=== PATIENT | female | born 1990 | race Caucasian/White ===

== ENCOUNTER → 2018-06-28 16:10 | Outpatient (CLI) | payer BC, SELFPAY ==
--- NOTE | 2018-06-28 16:14 | DI.US.S_ITS ---
PROCEDURE: US OB <= 14 WEEKS FETUS INDICATIONS: Dating US OUTSIDE/PRIOR DATING DATA: Last menstrual period (LMP): Not available. LMP-based estimated date of delivery (CHRISTIANA): Not available. First dating scan (date and location): 06/28/18. Estimated date of delivery (CHRISTIANA) from first dating scan: 01/26/19 os or -5 days. TECHNIQUE: Real-time scanning was performed of the fetus and maternal pelvic organs, with image documentation. Endovaginal scanning was also performed to better visualize the fetus and maternal ovaries. COMPARISON: None. FINDINGS: Embryo: [place]-rump length of 2.9 cm correlates with a gestational age estimate of 9 weeks 5 days, plus or -5 days. Heart rate is 180 beats per minute. Measurement variability in dating: +/- 4 weeks by LMP, +/- 7 days by mean sac diameter (use before 6 weeks gestation if crown-rump length not able to be measured), +/- 5 days by crown-rump length (up to 8 weeks 6 days gestation), +/- 7 days by crown-rump length (up to 13 weeks 6 days gestation). Maternal organs: Ovaries normal considering gestational status. Limited images through the kidneys demonstrate no hydronephrosis. IMPRESSION: Single living intrauterine gestation, delivery date projected to be centered on 01/26/19, plus or -5 days. Followup anatomic survey at 22 weeks gestation is recommended. Dictated by: Dilshad Eddy M.D. on 06/28/2018 at 17:19 Approved by: Dilshad Eddy M.D. on 06/28/2018 at 17:20
== END ==
PROVIDERS: Visit Provider Family Medicine
DX: Z34.91 Encounter for supervision of normal pregnancy, unspecified, first trimester (principal); Z3A.09 9 weeks gestation of pregnancy
CPT/HCPCS: 76801

== ENCOUNTER → 2018-07-11 15:50 | Outpatient (CLI) | payer BC, SELFPAY ==
[2018-07-11 16:20] LABS: Add Manual Diff / Slide Review NO; Basophils Percent Auto 0.6 % (0-2); Hematocrit 37.3 % (36-46); Hemoglobin 12.8 g/dL (12.0-16.0); Lymphocytes Percent Auto 31.5 % (25-40); Mean Corpuscular HGB Conc 34.2 % (30-36); Mean Corpuscular Hemoglobin 29.3 PG (26-34); Mean Corpuscular Volume 85.5 fL (80-100); Monocytes Percent Auto 6.2 % (3-14); Neutrophils Absolute Auto 4600 /uL (3000-5900); Neutrophils Percent Auto 60.7 % (50-75); Platelet Count 277 X10^3/uL (150-400); Red Blood Cell Count 4.36 X10^6/uL (4.0-5.2); Red Cell Distribution Width 12.8 % (11.6-14.8); White Blood Cell Count 7.6 X10^3/uL (4.5-11.0)
[2018-07-11 17:56] LABS: Rubella Antibody IgG > 350.0 IU/mL (>15)
[2018-07-11 18:00] LABS: Hepatitis B Surface Antigen NEGATIVE s/c (NEGATIVE)
[2018-07-11 18:15] LABS: HIV 1 and 2 Antibody NEGATIVE (NEGATIVE); Hep C Virus Ab w/Reflex Quant NEGATIVE s/c (NEGATIVE)
[2018-07-13 14:31] LABS: HSV 2 IGG AB < 0.90 index (< 0.90); HSV1IGG < 0.90 index (< 0.90)
[2018-07-20 12:48] LABS: Rapid Plasma Reagin NON-REACTIVE
== END ==
PROVIDERS: Visit Provider Family Medicine
DX: Z34.91 Encounter for supervision of normal pregnancy, unspecified, first trimester (principal)
CPT/HCPCS: 36415; 80055; 86695; 86696; 86703; 86787; 86803; 86850; 86900; 86901; 87086

== ENCOUNTER → 2018-08-16 12:32 | Outpatient (CLI) | payer BC, SELFPAY ==
[2018-08-23 13:31] LABS: AFP, Serum 30.2 ng/mL; Calc Gestational Age 17.3; Cigarette Smoker N; Donated Egg NOT GIVEN; Donor Egg Age NOT GIVEN; Estriol, Free 1.18 ng/mL; Inhibin A, Dimeric 130 pg/mL; Maternal Weight 163 lbs; Number of Fetuses 1; Previous Pregnancy Down Syndro NOT GIVEN; hCG, Serum 22.9 IU/mL
== END ==
PROVIDERS: Visit Provider Family Medicine
DX: Z34.82 Encounter for supervision of other normal pregnancy, second trimester (principal); Z3A.17 17 weeks gestation of pregnancy
CPT/HCPCS: 36415; 82105; 82677; 84702; 86336

== ENCOUNTER → 2018-09-11 07:33 | Outpatient (CLI) | payer BC, SELFPAY ==
--- NOTE | 2018-09-11 07:35 | DI.US.S_ITS ---
PROCEDURE: US OB >= 14 WEEKS FETUS INDICATIONS: ANATOMIC SURVEY OUTSIDE/PRIOR DATING DATA: Last menstrual period (LMP): Unknown. LMP-based estimated date of delivery (CHRISTIANA): N./A.. First dating scan (date and location): 06/28/19. Estimated date of delivery (CHRISTIANA) from first dating scan: 01/26/19. TECHNIQUE: Real-time scanning was performed of the fetus, with image documentation and biometric measurements. Endovaginal scanning: No COMPARISON: [facility], , OB >= 14 WEEKS FETUS, 07/11/2018, 16:50. FINDINGS: General: A single living intrauterine gestation is present. Presentation: Breech. Placenta: Placental position is posterior, without previa. Amniotic fluid index: 14.5 cm, normal range is 5-24 cm. heart rate: 152 beats per minute. Maternal cervical canal: 3.4 cm long. Normal lower limit is 2.5 cm. biometrics: Biparietal diameter: 21 weeks 5 days Head circumference: 21 weeks 3 days Abdominal circumference: 21 weeks 5 days Femur length: 19 weeks 5 days Estimated gestational age from initial scan: 20 weeks 3 days Composite gestational age from present scan: 21 weeks 1 day Estimated weight and percentile: 387 g; 73rd percentile Measurement variability for biometric dating: +/- 7 days from 14 weeks to 15 weeks 6 days gestation, +/- 10 days from 16 weeks to 21 weeks 6 days gestation, +/- 2 weeks from 22 weeks to 27 weeks 6 days gestation, +/- 3 weeks for 28 weeks gestation or later. weight reference: 4500 g or EFW >90/95% is considered macrosomia or large for gestational age. EFW <10% is small for gestational age. EFW 5% or less is considered intra-uterine growth restriction. Anatomic survey: Neuro: Ventricles are non-dilated at less than 10 mm. Cisterna magna is normal at 3-11 mm. Cerebellum is normal in size and morphology. Nuchal skin fold: Normal at less than 6 mm between 14-21 weeks gestational age. Face: Suboptimally visualized. Spine: No evidence for spina bifida. Heart: Suboptimally visualized. Diaphragm: Diaphragm is intact. Stomach: Left-sided stomach is present. Kidneys: No hydronephrosis. Normal is less than 5 mm in 2nd trimester, less than 7 mm in 3rd trimester. Cord: 3-vessel cord has orthotopic insertion. Bladder: Normal in size. Extremities: All 4 extremities identified. IMPRESSION: 1. Single living IUP redemonstrated and interval growth is normal. 2. face and heart not well seen; otherwise normal anatomic survey. Followup recommended. Dictated by: Ant Linn [facility] Interpreted: Gabe Palmer MD on 09/11/2018 at 8:47 Approved by: Gabe Palmer M.D. on 09/11/2018 at 9:30
== END ==
PROVIDERS: Visit Provider Family Medicine
DX: Z36.89 Encounter for other specified antenatal screening (principal); Z34.82 Encounter for supervision of other normal pregnancy, second trimester; Z3A.21 21 weeks gestation of pregnancy
CPT/HCPCS: 76811

== ENCOUNTER → 2018-10-27 10:29 | Outpatient (CLI) | payer BC, SELFPAY ==
[2018-10-27 12:06] LABS: Hematocrit 29.2 % (36-46); Hemoglobin 9.8 g/dL (12.0-16.0)
[2018-10-27 12:33] LABS: GTT (PREG) 1 Hour PP 50gm Dose 88 mg/dL (76-139)
== END ==
PROVIDERS: Visit Provider Family Medicine
DX: Z34.82 Encounter for supervision of other normal pregnancy, second trimester (principal); Z3A.25 25 weeks gestation of pregnancy
CPT/HCPCS: 36415; 82950; 85014; 85018; 86850

== ENCOUNTER → 2018-12-20 08:24 | Outpatient (CLI) | payer BC, SELFPAY ==
[2018-12-21 08:27] LABS: Strep Grp B PCR NEG for Grp B Strep
== END ==
PROVIDERS: Visit Provider Family Medicine
DX: Z34.83 Encounter for supervision of other normal pregnancy, third trimester (principal); Z3A.35 35 weeks gestation of pregnancy
CPT/HCPCS: 87653

== ENCOUNTER 2019-01-22 05:45 | Inpatient (IN) | payer BC, SELFPAY ==
[2019-01-22] VITALS (9 sets, daily range): BP systolic 97–120; BP diastolic 56–69; PULSE 80–86; RESP 15–21; TEMP 36–36.4; O2SAT 96–100
--- NOTE | 2019-01-22 | PATH_ITS ---
[facility] Accession Number: [id number] . 01 Material submitted: . SEGMENT BILATERAL FALLOPIAN TUBES . 02 Diagnosis: Segments of Bilateral Fallopian Tube, Bilateral Tubal Ligation: Two complete cross-sections of fallopian tube. Simple benign paratubal cysts. Negative for neoplasm. MRV/01/23/2019 . 02 Electronically signed: . Jean Lang MD, PhD, Pathologist NPI- [id number] . 01 Gross description: . Received one formalin-filled container labeled with the patient's name and labeled segment bilateral fallopian tubes. The specimen consists of two jason-recinos non-fimbriated cylindrical shaped portions of tissue. The first measures 0.8 x 0.6 x 0.5 cm. Inked blue, trisected and entirely submitted in cassette A1. The second piece measures 0.8 x 0.5 x 0.5 cm. Inked blue, trisected and entirely submitted in cassette A2. ([facility] [place]:[id number]) /[facility] . 02 Pathologist provided ICD-10: Z30.2 . 02 CPT . 834754 Performed at: 01 [facility] [address] [place] [address], [place], [place] [id number] MD Ish Blackwell MD Phone: [phone] Performed at: 02 [facility] [address] [place], [place] [id number] MD Carley King MD Phone: [phone]
[2019-01-22] MEDS: LACTATED RINGERS 1,000 ML 100 ML IV ×3 (06:40→08:38)
--- NOTE | 2019-01-22 07:20 | SUR.OPER ---
Supine on Padded OR bed, head on pillow, safety belt at thigh, arms secured on padded arm boards at <90 degrees abduction. Bump under right buttock. Legs uncrossed with pillow under knees, gel pad to heels, tape over blanket to lower legs.
--- NOTE | 2019-01-22 07:21 | P.HP_ITS ---
History of Present Illness Date Patient Seen: 01/22/19 Time Patient Seen: 07:15 Chief complaint: [id number] REPEAT W/TUBAL LIGATION Narrative: 29-year-old female G2 para 1 with an estimated due date of 01/22/2019 who is here for repeat section. She is 40 weeks gestational age consistent with LMP and early ultrasound. Patient had routine care starting at 12 weeks and good follow-up. care risk factors include history of severe anemia and previous . She had a fairly uneventful . She gained approximately 40 lb during her process. She received the Tdap and RhoGAM during her as well as a flu vaccine. Her GBS status is negative as well. She presents to the labor and delivery floor for repeat section. Patient family at bedside. Reviewed procedure and descriptive detail with patient including risks benefits and common complications of the procedure such as bleeding infection poor wound healing or injury to bladder or bowel. Patient is requesting tubal ligation as well and consent was obtained for this. Patient states she has a little bit of cough this morning. No headache no fever chills no dizziness no lightheadedness she is excited. No vaginal bleeding or if fluid or discharge from the vagina. Past medical history of asthma and bronchitis. History of previous iron infusions constipation urinary tract infection eczema. Past surgical had a surgical history deviated septum and previous Past Gynecological history no history of HIV GC chlamydia other gynecological infections. lab work blood type a negative antibody screen negative hematocrit 37.3 platelet count 277 VDRL L nonreactive hepatitis-B surface antigen negative rubella immune hep C negative varicella immune 2nd trimester integrated screen negative diabetes screen 88 antibody screen negative group B strep negative Patient History Surgical History Status post delivery (Resolved 02/09/16) Social History marital status: Smoking Status: Never smoker alcohol intake: never substance use type: does not use Family & Social History Tobacco & Substance use: Smoking Status Never smoker alcohol intake never Meds Home Medications Medication Instructions Recorded Confirmed Type 1 tab PO DAILY 07/11/18 01/22/19 History vitamin,calcium,[id number] acid tablet albuterol sulfate HFA 90 2 puff INHALATION Q6H PRN #8 gram 09/20/18 01/22/19 Rx mcg/actuation aerosol inhaler ondansetron 4 mg disintegrating 4 mg PO Q6-8H PRN #30 tab 12/05/18 01/22/19 Rx tablet Allergies Allergy/AdvReac Type Severity Reaction Status Date / Time amoxicillin [AMOXICILLIN] Allergy Mild Diarrhea Verified 01/22/19 06:53 Exam Vital Signs (past 8 hours): - 01/22/19 06:41 Blood Pressure 120/69 Narrative Exam Narrative: . General: Alert no apparent distress. Affect is appropriate. Dustin it is uncomfortable. HEENT: Neck is supple without lymphadenopathy pupils equal round and reactive. Cardio: S1-S2 regular rate and rhythm. Respiratory: Lungs clear to auscultation. Abdomen: Gravid. Extremities: Normal deep tendon reflexes trace edema. [place]: No contractions heart tones: heart tones present Assessment & Plan Assessment & Plan narrative: 28-year-old female G2 para 1 at 40 weeks gestational age for repeat section and bilateral tubal ligation. Patient will have informed consent signed patient will have an IV started CBC type and screen will be drawn. Patient will receive cefotetan 2 g on-call for operating room.. Patient will have epidural anesthesia. Risks benefits and common complications of were reviewed with the patient. All questions were answered by patient and patient's partner. Aftercare instructions were also reviewed as well as recovery. Patient will be taken to the OR for operation.
[2019-01-22 07:33] LABS: Add Manual Diff / Slide Review NO; Basophils Absolute Auto 200 /uL (0-100); Basophils Percent Auto 1.1 % (0-2); Eosinophils Absolute Auto 200 /uL (0-450); Eosinophils Percent Auto 1.2 % (2-4); Hematocrit 28.7 % (36-46); Hemoglobin 9.1 g/dL (12.0-16.0); Lymphocytes Absolute Auto 3100 /uL (1100-4500); Lymphocytes Percent Auto 20.2 % (25-40); Mean Corpuscular HGB Conc 31.7 % (30-36); Mean Corpuscular Hemoglobin 23.5 PG (26-34); Mean Corpuscular Volume 74.1 fL (80-100); Monocytes Absolute Auto 1100 /uL (0-900); Monocytes Percent Auto 7.1 % (3-14); Neutrophils Absolute Auto 10700 /uL (1500-7000); Neutrophils Percent Auto 70.4 % (50-75); Platelet Count 287 X10^3/uL (150-400); Red Blood Cell Count 3.87 X10^6/uL (4.0-5.2); Red Cell Distribution Width 15.9 % (11.6-14.8); White Blood Cell Count 15.1 X10^3/uL (4.5-11.0)
[2019-01-22] MEDS: CEFOTETAN 2 GM/50 ML PIGGYBACK IV (07:58)
--- NOTE | 2019-01-22 08:19 | SUR.OPER ---
VIABLE MALE INFANT DELIVERED AT 0818. CORD BLOOD AND PLACENTA TO OB WITH RN.
--- NOTE | 2019-01-22 09:07 | P.OP_ITS ---
Procedure & Clinicians Procedure: Repeat section with tubal ligation Same procedure as scheduled: Yes Indications: 29-year-old female G2 para 240 weeks gestational age with history of previous section requesting tubal ligation and repeat tiffany call. Financial Reporting Manager: Kanika Fair Click Yes if Unassisted: No Anesthesia Type: Spinal Operative Notes Findings: Procedure: Lower segment transverse section Consent: Verbal and written informed consent were obtained from the patient placed on the chart. Findings: Normal uterus normal ovaries male infant Anesthesia: Spinal Estimated blood loss: 500 mL Drains: Izaguirre to gravity. Description of procedure: The patient was brought to the operating room after her spinal epidural, preparation, and Izaguirre had been performed. The abdomen was prepped and draped in tested for for analgesia. When it was found to be adequate, a lower abdom inal Pfannenstiel incision was made with first with a knife and cared down to the fascia with a second knife. The fascia was incised in the midline and extended laterally with a knife. Bleeding points were clamped with hemostats and Bovie coagulated. The rectus muscles were by blunt dissection. The rectus muscles were divided in the midline and the peritoneum was grasped with hemostats and carefully entered with Gonzales scissors. The incision was extended bilaterally. The bladder blade was then placed. The vesicoperitoneum was grasped with smooth pickups, entered with Metzenbaum scissors, and extended laterally. The bladder flap was created by gently blunt dissection and placed behind the bladder blade. The lower uterine segment was carefully incised with the scalpel and extended laterally with the fingers. A live was found to be in the vertex position. The head was then easily elevated with the hand. The baby was then suctioned and cried immediately, and was handed to the waiting attendant. The placenta was delivered manually. The uterus was explored with a wet lap sponge and found to be clear membranes. The first layer of the uterine closure was with running locking #1 chromic catgut suture. The second layer with an imbricating #1 chromic catgut suture. Hemostasis was carefully checked and found to be satisfactory. The left tube was identified with a Reklaw and fimbriated an. Left tube was closed in a modified Argyle procedure this procedure was then repeated on the right side tubes were sent for pathology. Afterwards the tubes were inspected and cauterized the bleeding was satisfactory. The bladder flap was closed with a running 2-0 chromic catgut suture. . After sponge and needle counts were found to be correct the peritoneum was closed with 2-0 chromic catgut suture. Rectus muscles were approximated in the lower midline. The fascia was closed with a 2 running 0 Vicryl from lateral to midline. The subcutaneous tissue was approximated with interrupted 2.0 plain gut. Bleeding points were Bovie and coagulated. The subcutaneous tissue was approximated with 2.0 plain gut suture. The skin was closed with 1-0 running subcuticular stitch. Urinary output was adequate and normal patient left to the recovery room in good condition. Closure Type: primary Specimen(s): other Applied: catheter Estimated Blood Loss (mL): 500 Complications: none Condition: stable Disposition: other
[2019-01-22] MEDS: HYDROMORPHONE 2 MG INJ 0.5 MG IV ×2 (09:14→09:24)
--- NOTE | 2019-01-22 09:28 | SUR.PHASEI ---
Report called to Brunilda
--- NOTE | 2019-01-22 09:42 | SUR.PHASEI ---
Pt transferred to the center. VS, fundus and dressing checked with RN. Small areas of shadow drainage to abd drsg x3. Fundus at U per RN. IV tubing changed. Spinal level at L1.
[2019-01-22] MEDS: HYDROCODONE/ACET 5/325 TABLET 2 TAB PO (10:08)
[2019-01-22] MEDS: MORPHINE PCA 30 MG/30 ML PCA.VIAL IV (10:30)
[2019-01-22] MEDS: MORPHINE 10 MG/ML INJ 2 MG IV ×3 (10:35→12:01)
[2019-01-22 12:34] LABS: Hematocrit 27.8 % (36-46); Hemoglobin 8.9 g/dL (12.0-16.0)
[2019-01-22] MEDS: HYDROMORPHONE PCA (6MG/30ML) 6 MG/30 ML PCA.VIAL 1 MG IV (12:45)
[2019-01-22] MEDS: LORazepam 2 MG/ML SYRINGE 0.5 MG IV (12:51)
[2019-01-22] MEDS: HYDROMORPHONE 1 MG INJ IV (12:53)
[2019-01-22] MEDS: KETOROLAC 30 MG/ML VIAL IV ×2 (14:21→23:17)
[2019-01-22 14:23] LABS: Hematocrit 27.4 % (36-46); Hemoglobin 8.7 g/dL (12.0-16.0)
[2019-01-22] MEDS: LACTATED RINGERS 1,000 ML 125 ML IV ×2 (14:45→23:53)
--- NOTE | 2019-01-22 15:43 | PM.PN.1 ---
Subjective Date Patient Seen: 01/22/19 Time Patient Seen: 11:44 Interval history: Patient seen and evaluated 10 13 got called by the nurse a.m. the patient was in more pain. The patient did not have Duramorph in her spinal which she had last time. Started a morphine WELDER TECH and this was given. But despite this she did not have pad adequate pain relief. Gave her a bolus of IV morphine. And some Vistaril. Despite this over the next half an hour patient was still in considerable amount of pain. During this time patient's vital signs were stable. She was not tachycardic. Elected to do a hemoglobin hematocrit to make sure there was internal bleeding. Her incision was cleaned and checked which looked normal. She had no significant drainage from her vagina and anticipated vaginal bleeding after . Her Izaguirre was draining well to gravity. Due to despite inadequate pain control we then stopped her morphine WELDER TECH and placed her on Dilaudid gave her bolus as well as lorazepam to help with anxiety. Approximately 130 patient's pain became better controlled. By 2:00 a.m. she was resting comfortably. From a recent evaluation at 3:45 a.m. her hemoglobin hematocrit has been stable her vital signs are stable. She is resting in bed comfortably and her pain is optimally controlled at this time. Re-examination of her abdomen incision things are good. Vaginal bleeding has been is expected status post surgery and Izaguirre is still draining. Exam Vital Signs (past 8 hours): - 01/22/19 09:06 01/22/19 09:11 01/22/19 09:16 Temperature 96.8 F L Pulse Rate 83 84 85 Respiratory Rate 15 21 21 Blood Pressure 97/61 98/58 L 100/56 L Pulse Oximetry 98 99 01/22/19 09:21 01/22/19 09:26 Temperature Pulse Rate 86 80 Respiratory Rate 15 15 Blood Pressure 102/59 L 100/58 L Pulse Oximetry 97 100 Oxygen Delivery Method Room Air Narrative Exam Narrative: General: Alert uncomfortable. Cardio: S1-S2 Respiratory: Clear to auscultation Abdomen: Incision is a small touch of blood on the Eliquis on the right. Uterus is firm. Bladder does not appear to be distended. She has no distended abdomen. She is uncomfortable to the touch. Objective Labs Result Diagrams: 01/22/19 14:10 Labs: Laboratory Results - last 24 hr 01/22/19 01/22/19 01/22/19 06:30 06:30 12:25 WBC 15.1 H RBC 3.87 L Hgb 9.1 L 8.9 L Hct 28.7 L 27.8 L MCV 74.1 L MCH 23.5 L MCHC 31.7 RDW 15.9 H Plt Count 287 Neut % (Auto) 70.4 Lymph % (Auto) 20.2 L [place] % (Auto) 7.1 Eos % (Auto) 1.2 L Baso % (Auto) 1.1 Neut # (Auto) 55828 H Lymph # (Auto) 3100 [place] # (Auto) 1100 H Eos # (Auto) 200 Baso # (Auto) 200 H Blood Type A Negative Antibody Screen Positive Antibody Identification Anti-D 01/22/19 14:10 WBC RBC Hgb 8.7 L Hct 27.4 L MCV MCH MCHC RDW Plt Count Neut % (Auto) Lymph % (Auto) [place] % (Auto) Eos % (Auto) Baso % (Auto) Neut # (Auto) Lymph # (Auto) [place] # (Auto) Eos # (Auto) Baso # (Auto) Blood Type Antibody Screen Antibody Identification Assessment & Plan Assessment & Plan narrative: Postop approximately 3 hr within and adequate pain relief. I do not think there is any postoperative complications such as internal bleeding as she does not have tachycardia low blood pressure. Izaguirre is working. Incisions clean dry intact vaginal bleeding is appropriate. She was a switch from morphine WELDER TECH to Dilaudid WELDER TECH. And pain is better optimally controlled now. Will continue to watch closely for complications. Provide adequate anesthesia with Dilaudid. And continue to follow.
--- NOTE | 2019-01-22 15:47 | P.PN_ITS ---
Subjective Date Patient Seen: 01/22/19 Time Patient Seen: 11:44 Interval history: Patient seen and evaluated 10 13 got called by the nurse a.m. the patient was in more pain. The patient did not have Duramorph in her spinal which she had last time. Started a morphine WOOD FUEL PELLETIZER and this was given. But despite this she did not have pad adequate pain relief. Gave her a bolus of IV morphine. And some Vistaril. Despite this over the next half an hour patient was still in considerable amount of pain. During this time patient's vital signs were stable. She was not tachycardic. Elected to do a hemoglobin hematocrit to make sure there was internal bleeding. Her incision was cleaned and checked which looked normal. She had no significant drainage from her vagina and anticipated vaginal bleeding after . Her Izaguirre was draining well to gravity. Due to despite inadequate pain control we then stopped her morphine WOOD FUEL PELLETIZER and placed her on Dilaudid gave her bolus as well as lorazepam to help with anxiety. Approximately 130 patient's pain became better controlled. By 2:00 a.m. she was resting comfortably. From a recent evaluation at 3:45 a.m. her hemoglobin hematocrit has been stable her vital signs are stable. She is resting in bed comfortably and her pain is optimally controlled at this time. Re-examination of her abdomen incision things are good. Vaginal bleeding has been is expected status post surgery and Izaguirre is still draining. Exam Vital Signs (past 8 hours): - 01/22/19 09:06 01/22/19 09:11 01/22/19 09:16 Temperature 96.8 F L Pulse Rate 83 84 85 Respiratory Rate 15 21 21 Blood Pressure 97/61 98/58 L 100/56 L Pulse Oximetry 98 99 01/22/19 09:21 01/22/19 09:26 Temperature Pulse Rate 86 80 Respiratory Rate 15 15 Blood Pressure 102/59 L 100/58 L Pulse Oximetry 97 100 Oxygen Delivery Method Room Air Narrative Exam Narrative: General: Alert uncomfortable. Cardio: S1-S2 Respiratory: Clear to auscultation Abdomen: Incision is a small touch of blood on the Eliquis on the right. Uterus is firm. Bladder does not appear to be distended. She has no distended abdomen. She is uncomfortable to the touch. Objective Labs Result Diagrams: 01/22/19 14:10 Labs: Laboratory Results - last 24 hr 01/22/19 01/22/19 01/22/19 06:30 06:30 12:25 WBC 15.1 H RBC 3.87 L Hgb 9.1 L 8.9 L Hct 28.7 L 27.8 L MCV 74.1 L MCH 23.5 L MCHC 31.7 RDW 15.9 H Plt Count 287 Neut % (Auto) 70.4 Lymph % (Auto) 20.2 L [place] % (Auto) 7.1 Eos % (Auto) 1.2 L Baso % (Auto) 1.1 Neut # (Auto) 41858 H Lymph # (Auto) 3100 [place] # (Auto) 1100 H Eos # (Auto) 200 Baso # (Auto) 200 H Blood Type A Negative Antibody Screen Positive Antibody Identification Anti-D 01/22/19 14:10 WBC RBC Hgb 8.7 L Hct 27.4 L MCV MCH MCHC RDW Plt Count Neut % (Auto) Lymph % (Auto) [place] % (Auto) Eos % (Auto) Baso % (Auto) Neut # (Auto) Lymph # (Auto) [place] # (Auto) Eos # (Auto) Baso # (Auto) Blood Type Antibody Screen Antibody Identification Assessment & Plan Assessment & Plan narrative: Postop approximately 3 hr within and adequate pain relief. I do not think there is any postoperative complications such as internal bleeding as she does not have tachycardia low blood pressure. Izaguirre is working. Incisions clean dry intact vaginal bleeding is appropriate. She was a switch from morphine WOOD FUEL PELLETIZER to Dilaudid WOOD FUEL PELLETIZER. And pain is better optimally controlled now. Will continue to watch closely for complications. Provide adequate anesthesia with Dilaudid. And continue to follow.
[2019-01-22] MEDS: ALBUTEROL HFA 60 PUFF/8 GM INH INH (23:58)
[2019-01-23 04:19] VITALS: TEMP 36.6
[2019-01-23] MEDS: OXYCODONE/ACETAMINOPHEN 5/325 TABLET 2 TAB PO ×5 (04:19→21:07)
[2019-01-23] MEDS: KETOROLAC 30 MG/ML VIAL IV (05:16)
[2019-01-23 08:36] LABS: Add Manual Diff / Slide Review NO; Basophils Absolute Auto 100 /uL (0-100); Basophils Percent Auto 0.5 % (0-2); Eosinophils Absolute Auto 100 /uL (0-450); Eosinophils Percent Auto 0.7 % (2-4); Hemoglobin 7.1 g/dL (12.0-16.0); Lymphocytes Absolute Auto 2800 /uL (1100-4500); Lymphocytes Percent Auto 15.3 % (25-40); Mean Corpuscular HGB Conc 32.4 % (30-36); Mean Corpuscular Hemoglobin 23.4 PG (26-34); Mean Corpuscular Volume 72.5 fL (80-100); Monocytes Absolute Auto 1400 /uL (0-900); Monocytes Percent Auto 7.5 % (3-14); Neutrophils Absolute Auto 13800 /uL (1500-7000); Platelet Count 255 X10^3/uL (150-400); Red Blood Cell Count 3.04 X10^6/uL (4.0-5.2); Red Cell Distribution Width 15.9 % (11.6-14.8); White Blood Cell Count 18.2 X10^3/uL (4.5-11.0)
[2019-01-23] MEDS: FERROUS GLUCONATE 324 MG TABLET PO (08:38)
--- NOTE | 2019-01-23 09:14 | PM.PN.1 ---
Subjective Date Patient Seen: 01/23/19 Time Patient Seen: 07:27 Interval history: day 1. Mom did much better overnight with pain control. She is now off her RIDE OPERATOR taking oral Percocet. She is ambulating. Her catheter is out. She has Hep-Lock in. She had dinner last night and is tolerating breakfast. Vaginal bleeding has been scant. She is urinating without catheter. She slept well last night was up every few hours breast-feeding baby she feels like that is going well. Exam Vital Signs (past 8 hours): - 01/23/19 04:19 Temperature 97.8 F Oxygen Delivery Method Room Air Narrative Exam Narrative: Gen.: Alert no apparent distress HEENT: Pupils equal round and reactive or mucosa is moist Cardio: S1-S2 regular rate and rhythm no murmurs appreciated. Respiratory: Normal respiratory effort Abdomen: Incision clean dry and intact uterus is firm a little bit below the umbilicus Extremities: Mild swelling. No calf tenderness Neurologic: Grossly intact. Objective Labs Result Diagrams: 01/23/19 08:14 Labs: Laboratory Results - last 24 hr 01/22/19 01/22/19 01/22/19 06:30 12:25 14:10 WBC RBC Hgb 8.9 L 8.7 L Hct 27.8 L 27.4 L MCV MCH MCHC RDW Plt Count Neut % (Auto) Lymph % (Auto) [place] % (Auto) Eos % (Auto) Baso % (Auto) Neut # (Auto) Lymph # (Auto) [place] # (Auto) Eos # (Auto) Baso # (Auto) Antibody Identification Anti-D 01/23/19 08:14 WBC 18.2 H RBC 3.04 L Hgb 7.1 L Hct 22.0 L MCV 72.5 L MCH 23.4 L MCHC 32.4 RDW 15.9 H Plt Count 255 Neut % (Auto) 76.0 H Lymph % (Auto) 15.3 L [place] % (Auto) 7.5 Eos % (Auto) 0.7 L Baso % (Auto) 0.5 Neut # (Auto) 46492 H Lymph # (Auto) 2800 [place] # (Auto) 1400 H Eos # (Auto) 100 Baso # (Auto) 100 Antibody Identification Assessment & Plan Assessment & Plan narrative: day 1 . Had difficulty with pain control yesterday much improved today. Bleeding as is inspected. Hemoglobin hematocrit and vital signs are stable breast-feeding is going well. Mom's ambulating tolerating diet. Will DC Izaguirre catheter IV fluids SCDs ambulate as needed.
--- NOTE | 2019-01-23 09:17 | P.PN_ITS ---
Subjective Date Patient Seen: 01/23/19 Time Patient Seen: 07:27 Interval history: day 1. Mom did much better overnight with pain control. 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 She is ambulating. Her catheter is out. She has Hep-Lock in. She had dinner last night and is tolerating breakfast. Vaginal bleeding has been scant. She is urinating without catheter. She slept well last night was up every few hours breast- feeding baby she feels like that is going well. Exam Vital Signs (past 8 hours): - 01/23/19 04:19 Temperature 97.8 F Oxygen Delivery Method Room Air Narrative Exam Narrative: Gen.: Alert no apparent distress HEENT: Pupils equal round and reactive or mucosa is moist Cardio: S1-S2 regular rate and rhythm no murmurs appreciated. Respiratory: Normal respiratory effort Abdomen: Incision clean dry and intact uterus is firm a little bit below the umbilicus Extremities: Mild swelling. No calf tenderness Neurologic: Grossly intact. Objective Labs Result Diagrams: 01/23/19 08:14 Labs: Laboratory Results - last 24 hr 01/22/19 01/22/19 01/22/19 06:30 12:25 14:10 WBC RBC Hgb 8.9 L 8.7 L Hct 27.8 L 27.4 L MCV MCH MCHC RDW Plt Count Neut % (Auto) Lymph % (Auto) [place] % (Auto) Eos % (Auto) Baso % (Auto) Neut # (Auto) Lymph # (Auto) [place] # (Auto) Eos # (Auto) Baso # (Auto) Antibody Identification Anti-D 01/23/19 08:14 WBC 18.2 H RBC 3.04 L Hgb 7.1 L Hct 22.0 L MCV 72.5 L MCH 23.4 L MCHC 32.4 RDW 15.9 H Plt Count 255 Neut % (Auto) 76.0 H Lymph % (Auto) 15.3 L [place] % (Auto) 7.5 Eos % (Auto) 0.7 L Baso % (Auto) 0.5 Neut # (Auto) 98254 H Lymph # (Auto) 2800 [place] # (Auto) 1400 H Eos # (Auto) 100 Baso # (Auto) 100 Antibody Identification Assessment & Plan Assessment & Plan narrative: day 1 . Had difficulty with pain control yesterday much improved today. Bleeding as is inspected. Hemo globin hematocrit and vital signs are stable breast-feeding is going well. Mom's ambulating tolerating diet. Will DC Izaguirre catheter IV fluids SCDs ambulate as needed.
[2019-01-23] MEDS: DOCUSATE ORAL LIQUID 100 MG/10 ML UDC 250 MG PO (11:32)
[2019-01-23] MEDS: IBUPROFEN SUSP 100 MG/5 ML UDC 600 MG PO ×2 (12:11→18:27)
[2019-01-24] MEDS: IBUPROFEN SUSP 100 MG/5 ML UDC 600 MG PO ×2 (00:21→08:51)
[2019-01-24] MEDS: OXYCODONE/ACETAMINOPHEN 5/325 TABLET 2 TAB PO ×4 (01:00→13:11)
--- NOTE | 2019-01-24 07:09 | PM.DS.1 ---
History of Present Illness Chief complaint: [id number] REPEAT W/TUBAL LIGATION Narrative: 29-year-old female G2 para 1 with an estimated due date of 01/22/2019 who is here for repeat section. She is 40 weeks gestational age consistent with LMP and early ultrasound. Patient had routine care starting at 12 weeks and good follow-up. care risk factors include history of severe anemia and previous . She had a fairly uneventful . She gained approximately 40 lb during her process. She received the Tdap and RhoGAM during her as well as a flu vaccine. Her GBS status is negative as well. She presents to the labor and delivery floor for repeat section. Patient family at bedside. Reviewed procedure and descriptive detail with patient including risks benefits and common complications of the procedure such as bleeding infection poor wound healing or injury to bladder or bowel. Patient is requesting tubal ligation as well and consent was obtained for this. Patient states she has a little bit of cough this morning. No headache no fever chills no dizziness no lightheadedness she is excited. No vaginal bleeding or if fluid or discharge from the vagina. Past medical history of asthma and bronchitis. History of previous iron infusions constipation urinary tract infection eczema. Past surgical had a surgical history deviated septum and previous Past Gynecological history no history of HIV GC chlamydia other gynecological infections. lab work blood type a negative antibody screen negative hematocrit 37.3 platelet count 277 VDRL L nonreactive hepatitis-B surface antigen negative rubella immune hep C negative varicella immune 2nd trimester integrated screen negative diabetes screen 88 antibody screen negative group B strep negative Discharge Providers Date of admission: 01/22/19 05:45 Discharge Date: 01/24/19 Consults: 01/22/19 09:52 Consult to Home Sales Service Professional Routine Comment: 01/22/19 23:41 Consult to Respiratory Therapy Evaluate & Treat Comment: dry cough ill for one month, asthma Physician Instructions: Evaluate and treat Discharge provider: Johnny Cleaning MD Summary Discharge Diagnosis: Term intrauterine with bilateral tubal ligation Postoperative pain Hospital Course: Patient was admitted the hospital for full-term intrauterine undergoing repeat section with tubal ligation. Patient had normal surgical course. Postoperatively she had some significant pain. Which needed to be addressed with a HARVEST FIELD TICKETER. Initially started on morphine which was not adequate. The Dilaudid was. Over the ensuing 24 hr pain returned to normal. She was transitioned off of IV pain medication to oral. Izaguirre catheter and IV removed. She began eating regular diet. Ambulating had normal urination and bowel movement. Incision during the hospital stay was clean dry and intact. Her vital signs were stable. Vaginal bleeding was anticipated. The patient during the hospital stay had SCDs. And negative calf pain or tenderness. Exam Vital Signs (past 8 hours): Oxygen Delivery Method Room Air Const Other: General: Alert no apparent distress. Affect is appropriate. Dustin it is uncomfortable. HEENT: Neck is supple without lymphadenopathy pupils equal round and reactive. Cardio: S1-S2 regular rate and rhythm. Respiratory: Lungs clear to auscultation. Abdomen: Uterus firm. Incision clean dry and intact. Extremities: Normal deep tendon reflexes trace edema. Objective Labs Result Diagrams: 01/23/19 08:14 Labs: Laboratory Results - last 24 hr 01/23/19 08:14 WBC 18.2 H RBC 3.04 L Hgb 7.1 L Hct 22.0 L MCV 72.5 L MCH 23.4 L MCHC 32.4 RDW 15.9 H Plt Count 255 Neut % (Auto) 76.0 H Lymph % (Auto) 15.3 L [place] % (Auto) 7.5 Eos % (Auto) 0.7 L Baso % (Auto) 0.5 Neut # (Auto) 69833 H Lymph # (Auto) 2800 [place] # (Auto) 1400 H Eos # (Auto) 100 Baso # (Auto) 100 Discharge Plan Discharge Plan Patient Disposition: Home Discharge comment: patient will be discharged home follow-up in 7-10 days for incision check Discharge Med Rec/Prescriptions Prescriptions: New docusate sodium [Colace] 100 mg capsule 200 mg PO BEDTIME Qty: 20 RF: 0 ibuprofen [IBU] 800 mg tablet 800 mg PO TID Qty: 60 RF: 0 oxycodone-acetaminophen [Percocet] 5-325 mg tablet 1 tab PO Q4-6H PRN (Reason: pain) Qty: 30 RF: 0 Continued prenat.vits,rocky,rip-[id number] tablet 1 tab PO DAILY RF: 0 albuterol sulfate 90 mcg/actuation HFA aerosol inhaler 2 puff INHALATION Q6H PRN (Reason: bronchospasm) Qty: 8 RF: 0 Discontinued ondansetron [Zofran ODT] 4 mg tablet,disintegrating 4 mg PO Q6-8H PRN (Reason: nausea and vomiting) Qty: 30 RF: 1 Skin/Wound/Dressing Care Other wound treatment: Watch for redness swelling irritation and incisional pain. Discharge Data Attending Provider: Johnny Cleaning Admit Date/Time: 01/22/19 05:45
--- NOTE | 2019-01-24 07:12 | P.DS_ITS ---
History of Present Illness Chief complaint: [id number] REPEAT W/TUBAL LIGATION Narrative: 29-year-old female G2 para 1 with an estimated due date of 01/22/2019 who is here for repeat section. She is 40 weeks gestational age consistent with LMP and early ultrasound. Patient had routine care starting at 12 weeks and good follow-up. care risk factors include history of severe anemia and previous . She had a fairly uneventful . She gained approximately 40 lb during her process. She received the Tdap and RhoGAM during her as well as a flu vaccine. Her GBS status is negative as well. She presents to the labor and delivery floor for repeat section. Patient family at bedside. Reviewed procedure and descriptive detail with patient including risks benefits and common complications of the procedure such as bleeding infection poor wound healing or injury to bladder or bowel. Patient is requesting tubal ligation as well and consent was obtained for this. Patient states she has a little bit of cough this morning. No headache no fever chills no dizziness no lightheadedness she is excited. No vaginal bleeding or if fluid or discharge from the vagina. Past medical history of asthma and bronchitis. History of previous iron infusions constipation urinary tract infection eczema. Past surgical had a surgical history deviated septum and previous Past Gynecological history no history of HIV GC chlamydia other gynecological in fections. lab work blood type a negative antibody screen negative hematocrit 37.3 platelet count 277 VDRL L nonreactive hepatitis-B surface antigen negative rubella immune hep C negative varicella immune 2nd trimester integrated screen negative diabetes screen 88 antibody screen negative group B strep negative Discharge Providers Date of admission: 01/22/19 05:45 Discharge Date: 01/24/19 Consults: 01/22/19 09:52 Consult to County Adviser Routine Comment: 01/22/19 23:41 Consult to Respiratory Therapy Evaluate & Treat Comment: dry cough ill for one month, asthma Physician Instructions: Evaluate and treat Discharge provider: Johnny Cleaning MD Summary Discharge Diagnosis: Term intrauterine with bilateral tubal ligation Postoperative pain Hospital Course: Patient was admitted the hospital for full-term intrauterine undergoing repeat section with tubal ligation. Patient had normal surgical course. Postoperatively she had some significant pain. Which needed to be addressed with a LABOR DELIVERY RN. Initially started on morphine which was not adequate. The Dilaudid was. Over the ensuing 24 hr pain returned to normal. She was transitioned off of IV pain medication to oral. Izaguirre catheter and IV removed. She began eating regular diet. Ambulating had normal urination and bowel movement. Incision during the hospital stay was clean dry and intact. Her vital signs were stable. Vaginal bleeding was anticipated. The patient during the hospital stay had SCDs. And negative calf pain or tenderness. Exam Vital Signs (past 8 hours): Oxygen Delivery Method Room Air Const Other: General: Alert no apparent distress. Affect is appropriate. Dustin it is uncomfortable. HEENT: Neck is supple without lymphadenopathy pupils equal round and reactive. Cardio: S1-S2 regular rate and rhythm. Respiratory: Lungs clear to auscultation. Abdomen: Uterus firm. Incision clean dry and intact. Extremities: Normal deep tendon reflexes trace edema. Objective Labs Result Diagrams: 01/23/19 08:14 Labs: Laboratory Results - last 24 hr 01/23/19 08:14 WBC 18.2 H RBC 3.04 L Hgb 7.1 L Hct 22.0 L MCV 72.5 L MCH 23.4 L MCHC 32.4 RDW 15.9 H Plt Count 255 Neut % (Auto) 76.0 H Lymph % (Auto) 15.3 L [place] % (Auto) 7.5 Eos % (Auto) 0.7 L Baso % (Auto) 0.5 Neut # (Auto) 19518 H Lymph # (Auto) 2800 [place] # (Auto) 1400 H Eos # (Auto) 100 Baso # (Auto) 100 Discharge Plan Discharge Plan Patient Disposition: Home Discharge comment: patient will be discharged home follow-up in 7-10 days for incision check Discharge Med Rec/Prescriptions Prescriptions: New docusate sodium [Colace] 100 mg capsule 200 mg PO BEDTIME Qty: 20 RF: 0 ibuprofen [IBU] 800 mg tablet 800 mg PO TID Qty: 60 RF: 0 oxycodone-acetaminophen [Percocet] 5-325 mg tablet 1 tab PO Q4-6H PRN (Reason: pain) Qty: 30 RF: 0 Continued prenat.vits,rocky,[id number]-[id number] tablet 1 tab PO DAILY RF: 0 albuterol sulfate 90 mcg/actuation HFA aerosol inhaler 2 puff INHALATION Q6H PRN (Reason: bronchospasm) Qty: 8 RF: 0 Discontinued ondansetron [Zofran ODT] 4 mg tablet,disintegrating 4 mg PO Q6-8H PRN (Reason: nausea and vomiting) Qty: 30 RF: 1 Skin/Wound/Dressing Care Other wound treatment: Watch for redness swelling irritation and incisional pain. Discharge Data Attending Provider: Johnny Cleaning Admit Date/Time: 01/22/19 05:45
[2019-01-24] MEDS: DOCUSATE ORAL LIQUID 100 MG/10 ML UDC 250 MG PO (08:51)
[2019-01-24 10:39] VITALS: PULSE 74; RESP 16; O2SAT 97
[2019-01-24 10:57] VITALS: BP 108/60; PULSE 97; RESP 15; TEMP 36.6
== END 2019-01-24 14:43 | disposition home or self-care (01) | DRG 798 ==
PROVIDERS: Admitting Provider Family Medicine; Family Provider Obstetrics & Gynecology; Visit Provider Family Medicine
PROC: 10E0XZZ Delivery of Products of Conception, External Approach (ICD-10-PCS; CPT 59514; principal; 2019-01-22 07:45)
DX: O34.219 Maternal care for unspecified type scar from previous cesarean delivery (principal); Z37.0 Single live birth; Z3A.40 40 weeks gestation of pregnancy; Z30.2 Encounter for sterilization; G89.18 Other acute postprocedural pain
CPT/HCPCS: 36415; 58611; 59050; 59510; 59514; 85014; 85018; 85025; 86850; 86870; 86900; 86901; 94640; 94760; J1100; J1170; J1885; J2060; J2270; J2405; J2704; J3010

== ENCOUNTER → 2019-01-31 12:21 | Outpatient (CLI) | payer BC, SELFPAY ==
--- NOTE | 2019-01-31 12:23 | DI.US.S_ITS ---
PROCEDURE: US PERIPH VENOUS LOW EXTREM RT INDICATIONS: edema r/o vte TECHNIQUE: Real-time imaging, as well as color and pulse Doppler interrogation, were performed of the lower extremity deep veins from the inguinal ligament to the popliteal fossa. COMPARISON: None. FINDINGS: The common femoral, femoral and popliteal veins are normally compressible, and free of intraluminal thrombus. Color and pulse Doppler demonstrate normal phasic intraluminal flow. There is normal augmentation response to distal compression maneuver. IMPRESSION: No deep venous thrombosis in the right lower extremity. Dictated by: Jose Tipton M.D. on 01/31/2019 at 13:06 Approved by: Jose Tipton M.D. on 01/31/2019 at 13:07
== END ==
PROVIDERS: Visit Provider Family Medicine
DX: R60.0 Localized edema (principal)
CPT/HCPCS: 93971